=== PATIENT | male | born 1990 | race African-American/Black ===

== ENCOUNTER 2025-03-19 01:59 | Emergency (ER) | payer OTHER ==
[~2025-03-19] VITALS: Ht 167.6 cm; Wt 65.8 kg
[2025-03-19] MEDS ORDERED: CLINDAMYCIN HCL 150 MG CAPSULE ONE (02:48)
[2025-03-19] MEDS ORDERED: IBUPROFEN 400 MG TABLET ONE (02:48)
[2025-03-19] MEDS: CLINDAMYCIN HCL 150 MG CAPSULE PO ONE (02:49)
[2025-03-19] MEDS: IBUPROFEN 400 MG TABLET PO ONE (02:49)
[2025-03-19] MEDS ORDERED: CLIN300C12 PO (03:13)
[2025-03-19 03:48] VITALS: BP 122/77; TEMP 98.4; O2SAT 97
== END 2025-03-19 03:48 | disposition home or self-care (01) ==
LOC: ER 01:59
DX: L03.113 Cellulitis of right upper limb (principal); J45.909 Unspecified asthma, uncomplicated

== ENCOUNTER 2025-07-10 03:51 | Emergency (ER) | payer OTHER ==
[~2025-07-10] VITALS: Ht 167.6 cm; Wt 69.9 kg
[~2025-07-10 03:51] MED LIST: CLIN300C12 PO
[2025-07-10 04:06] VITALS: BP 144/74; TEMP 98; O2SAT 99
== END 2025-07-10 05:51 | disposition home or self-care (01) ==
LOC: ER 03:54
DX: S63.601A Unspecified sprain of right thumb, initial encounter (principal); J45.909 Unspecified asthma, uncomplicated; F17.200 Nicotine dependence, unspecified, uncomplicated; Z59.00 Homelessness unspecified; W19.XXXA Unspecified fall, initial encounter; Y93.89 Activity, other specified; Y92.89 Other specified places as the place of occurrence of the external cause; Y99.8 Other external cause status
CPT/HCPCS: 73140-TC